=== PATIENT | male | born 1970 | race Caucasian/White ===

== ENCOUNTER 2016-06-15 09:10 | Emergency (ER) | payer OTHER ==
[~2016-06-15] VITALS: Ht 177.8 cm; Wt 106.6 kg
[~2016-06-15 09:10] MED LIST: BENTYL20 M1 PO; CIPRO500 M1 PO; FLAGYL500 MG PO; IBUPROFEN600 M1 PO; PERCOCET 5-3251 EACH PO; POLYTRIM O200 GTT/BO OP; PREVACID 30MG30 MG PO
--- NOTE | 2016-06-15 10:55 | ED THROAT/DENTAL COMPLAINT ---
History of Present Illness General Chief Complaint: Sore Throat, Dental Pain Stated Complaint: DENTAL PAIN Source: patient, old records Exam Limitations: no limitations Vital Signs & Intake/Output Vital Signs & Intake/Output Vital Signs Date Time Temp Pulse Resp B/P Pulse O2 O2 Flow FiO2 Ox Delivery Rate 06/15 1110 97.4 86 18 146/79 99 Room Air 06/15 1110 99 06/15 0913 98.0 94 18 139/98 98 Room Air Allergies Coded Allergies: NO KNOWN ALLERGIES (12/28/10) Reconcile Medications Amoxicillin/Potassium Clav (Augmentin 875-125 Tablet) 875 MG-125 MG TABLET 1 TAB PO BID dental Ciprofloxacin HCl (Cipro) 500 MG TABLET 1 TAB PO BID colitis Dicyclomine HCl (Bentyl) 20 MG TABLET 1 TAB PO TID spasms Metronidazole (Flagyl) 500 MG TABLET 1 TAB PO TID COLITIS Oxycodone HCl/Acetaminophen (Percocet 5-325 MG Tablet) 5 MG-325 MG TABLET 1 TAB PO BID PRN pain Triage Note: PT COMPLAINS OF L SIDE UPPER DENTAL PAIN 12/21 THAT STARTED LAST PM, TOOK MOTRIN 2 HOURS AGO FOR THE PAIN Triage Nurses Notes Reviewed? yes Onset: Abrupt Duration: day(s): (2), constant Timing: recent history Injury Environment: home Severity: moderate, severe Severity Numbers: 10 Modifying Factors: Worsens With: eating. Associated Symptoms: denies HPI: 45-year-old male presents emergency room complaining of left upper dental pain associated with left-sided facial swelling since last night 10 out of 10 pain worse with eating palpation. He denies any known injury or trauma, and has not follow-up with a dentist. He denies any difficulty swallowing fevers or chills. He took ibuprofen 2 hours prior to arrival without improvement. There are no other modifying factors or associated symptoms otherwise. (SEMAJ PRATHER,CARLOS) Past History Travel History Traveled to [place] past 21 day No Medical History Any Pertinent Medical History? see below for history Neurological: NONE EENT: NONE Cardiovascular: NONE Respiratory: NONE Gastrointestinal: ACID REFLUX Hepatic: NONE Renal: NONE Musculoskeletal: R KNEE TORN CARTILIDGE Psychiatric: substance abuse, HX OF SUBSTANCE ABUSE Endocrine: NONE Blood Disorders: NONE Cancer(s): NONE REHAB AIDE/Reproductive: NONE Surgical History Surgical History: R KNEE TORN LIGAMENT Psychosocial History What is your primary language Luxembourgish Tobacco Use: Never used ETOH Use: denies use Illicit Drug Use: denies illicit drug use Family History Hx Contributory? No (CARLOS WILKINSON) Review of Systems Review of Systems Constitutional: Reports: see HPI. All Other Systems: Reviewed and Negative Comments Review of systems: See HPI, All other systems negative. Constitutional, no chills no fever, no malaise HEENT: no sore throat no congestion, no ear pain Cardiovascular: No chest pain , no palpitation Skin,no rashes, no change in skin Respiratory: No dyspnea no cough no sputum GI: No nausea no vomiting, Muscle skeletal: No joint pain,no back pain, no neck pain, Neurologic: no headache Psych: No stress Heme/endocrine: No bruising no bleeding Immunology: No lymphadenopathy (CARLOS WILKINSON) Physical Exam Physical Exam General Appearance: well developed/nourished, alert, awake Mouth/Throat: pharynx normal Comments: Well-developed well-nourished patient in no apparent distress. Head/Face: Atraumatic, no maxillary/frontal sinus tenderness, mild left facial swelling Eyes: PERRL, EOMI, no conjunctival injection Ear:External auditory canals clear Nose: atraumatic.Normal inspection Throat: Moist mucous membranes.Pharynx normal. No pharyngeal erythema/exudate seen. No stridor/drooling or assymetry. No swelling or edema. Poor dentition no gingival abscess Neck: Supple, no lymphadenopathy, FROM Back: FROM, Nontender Cardiovascular: Regular rate and rhythms no murmurs rubs or gallops, Respiratory: No respiratory distress. Patient speaking in full complete sentences. Breath sounds clear to auscultation bilaterally: NO W/R/R Extremities: full range of motion Neuro: Alert and oriented x3 Skin: Warm & dry;No appreciable rash on exposed skin Psych: Mood affect normal, normal memory normal judgment. Core Measures ACS in differential dx? No Severe Sepsis Present: No Septic Shock Present: No (CARLOS WILKINSON) Progress Differential Diagnosis: carious tooth, epiglottitis, odontogenic abscess, devon- tonsillar abscess, stomatitis/gingivitis, tooth fracture Plan of Care: Advise close follow-up with dentist Kristal Velásquez provided he feels comfortable plan cleared for discharge I had an extensive conversation regarding need for close follow up with their primary care physician this week as well as return precautions. I answered all of their questions, they feel comfortable with the plan and follow-up care. I discussed the medications that they will receive with the patient. I gave them signs and symptoms that could indicate an adverse reaction. I have advised them to limit their activities until they can see how they respond to the medication. (CARLOS WILKINSON) Departure Departure Time of Disposition: 1057 Disposition: HOME OR SELF CARE Condition: Stable Clinical Impression Primary Impression: Dental abscess Referrals: JOSE TORRES APRN (PCP/Family) Additional Instructions: Follow-up with your dentist as discussed. Augmentin as directed. Percocet for breakthrough pain use caution as this is a narcotic addictive no driving or drinking alcohol while taking. These prescriptions were sent to the [facility]. return with any concerns Departure Forms: Customer Survey General Discharge Information Prescriptions: Current Visit Scripts Amoxicillin/Potassium Clav (Augmentin 875-125 Tablet) 1 TAB PO BID #20 TAB Oxycodone HCl/Acetaminophen (Percocet 5-325 MG Tablet) 1 TAB PO BID PRN pain #10 TAB (CARLOS WILKINSON) PA/BRICK PITCHER Co-Sign Statement Statement: ED Attending supervision documentation- [] I saw and evaluated the patient. I have also reviewed all the pertinent lab results and diagnostic results. I agree with the findings and the plan of care as documented in the PA's/BRICK PITCHER's documentation. x I have reviewed the ED Record and agree with the PA's/BRICK PITCHER's documentation. [] Additions or exceptions (if any) to the PAs/BRICK PITCHER's note and plan are summarized below: [] (ESTEPHANIE COMBS,AI)
[2016-06-15] MEDS ORDERED: PERCOCET 5-3251 EACH PO (11:00)
[2016-06-15] MEDS ORDERED: AUGMENTIN 875-1 EACH PO (11:00)
[2016-06-15 11:10] VITALS: BP 146/79
== END 2016-06-15 11:15 ==
LOC: ERH 09:10
DX: K04.7 Periapical abscess without sinus (principal)

== ENCOUNTER 2016-06-16 05:38 | Emergency (ER) | payer OTHER ==
[~2016-06-16] VITALS: Ht 177.8 cm; Wt 106.6 kg
[~2016-06-16 05:38] MED LIST changes: +AUGMENTIN 875-1 EACH PO
--- NOTE | 2016-06-16 05:56 | ED THROAT/DENTAL COMPLAINT ---
History of Present Illness General Chief Complaint: Sore Throat, Dental Pain Stated Complaint: SEEN YEST DENTAL PAIN TODAY SEVERE FACIAL SWELLING Source: patient, old records Exam Limitations: no limitations Vital Signs & Intake/Output Vital Signs & Intake/Output Vital Signs Date Time Temp Pulse Resp B/P Pulse O2 O2 Flow FiO2 Ox Delivery Rate 06/16 0546 97.6 96 18 141/85 97 Room Air Allergies Coded Allergies: NO KNOWN ALLERGIES (12/28/10) Reconcile Medications Amoxicillin/Potassium Clav (Augmentin 875-125 Tablet) 875 MG-125 MG TABLET 1 TAB PO BID dental Ciprofloxacin HCl (Cipro) 500 MG TABLET 1 TAB PO BID colitis Dicyclomine HCl (Bentyl) 20 MG TABLET 1 TAB PO TID spasms Metronidazole (Flagyl) 500 MG TABLET 1 TAB PO TID COLITIS Oxycodone HCl/Acetaminophen (Percocet 5-325 MG Tablet) 5 MG-325 MG TABLET 1 TAB PO BID PRN pain Triage Note: PT TO ED C/O WORSENING PAIN AND SWELLING TO INFECTED TOOTH ON LEFT UPPER. PT SEEN FOR SWELLING AND TOOTH INFECTION YESTERDAY. STARTED ABX YESTERDAY AND SWELLING HAS GOTTEN WORSE. PATIENT DENIES ANY SWELLING TO TONGUE OR THROAT Triage Nurses Notes Reviewed? yes Onset: Abrupt Duration: day(s): (few) Timing: recent history Injury Environment: home Severity: mild, moderate No Modifying Factors: none Associated Symptoms: facial swelling HPI: 46 male presents with worsening left upper tooth and infection. He was seen yesterday and put on antibiotics. C/O facial swelling. No fever or chills. Reports worsening pain. Past History Travel History Traveled to [place] past 21 day No Medical History Any Pertinent Medical History? see below for history Neurological: NONE EENT: NONE Cardiovascular: NONE Respiratory: NONE Gastrointestinal: ACID REFLUX Hepatic: NONE Renal: NONE Musculoskeletal: R KNEE TORN [place]ARTILIDGE Psychiatric: substance abuse, HX OF SUBSTANCE ABUSE Endocrine: NONE Blood Disorders: NONE Cancer(s): NONE DENIAL RESOLUTION SPECIALIST/Reproductive: NONE Surgical History Surgical History: R KNEE TORN LIGAMENT Psychosocial History What is your primary language Surinamese Tobacco Use: Quit >30 days ago Family History Hx Contributory? No Review of Systems Review of Systems Constitutional: Denies: chills, fever. EENTM: Reports: mouth pain, tooth pain. Denies: throat pain, throat swelling. Respiratory: Denies: short of breath. Cardiovascular: Denies: chest pain. GI: Denies: abdominal pain. Genitourinary: Reports: no symptoms. Musculoskeletal: Reports: no symptoms. Skin: Reports: no symptoms. Neurological/Psychological: Reports: no symptoms. Hematologic/Endocrine: Denies: bruising, bleeding, polyuria, polydipsia. Immunologic/Allergic: Reports: no symptoms. All Other Systems: Reviewed and Negative Physical Exam Physical Exam General Appearance: well developed/nourished, alert, awake Head: atraumatic, LEFT FACIAL SWELLING Eyes: Bilateral: normal appearance, PERRL, EOMI. Ears: Bilateral: canal normal, Tympanic normal. Nose: normal inspection Mouth/Throat: LEFT UPPER TOOTH TTP, GUM SWELLING Neck: normal inspection, supple, full range of motion Neurologic/Psych: awake, alert, oriented x 3 Skin: intact, normal color, warm/dry Core Measures ACS in differential dx? No Severe Sepsis Present: No Septic Shock Present: No Progress Differential Diagnosis: odontogenic abscess, devon-tonsillar abscess, INFECTED TOOTH, ABSCESS, OSTEOMYELITIS Plan of Care: Orders Procedure Date/time Status CT MAXILLOFACIAL W CONT 06/16 554 Active Current Medications Sig/Nacho Start time Last Medication Dose Stop Time Status Admin Morphine Sulfate 4 MG ONCE ONE 06/16 644 UNVr (Morphine) 06/16 645 Diagnostic Imaging: Viewed by Me: CT Scan. Discussed w/RAD: CT Scan. Radiology Impression: PATIENT: KAREN MELARA PRESENT AGE: 45 PATIENT ACCOUNT NO: [id number] : 69 LOCATION: [facility] ORDERING PHYSICIAN: MARGIE GAINES MD SERVICE DATE: 06/16/16 EXAM TYPE: CAT - CT MAXILLOFACIAL W CONT EXAMINATION: CT MAXILLOFACIAL WITH CONTRAST CLINICAL INFORMATION: Left facial pain and swelling. COMPARISON: None TECHNIQUE: Multidetector helical imaging was performed in the axial plane with generation of coronal and sagittal reformatted images. The examination was performed after the administration of 93 mL of Optiray 320 intravenous contrast DLP: 811.94 mGy- cm FINDINGS: There is edema and swelling over the left side of the face around the mandible and over the maxilla involve the inferior preseptal soft tissues of left orbit. There is a small amount mucosal thickening in the left maxillary sinus but no air-fluid level. There is streak artifact from the teeth from the dental fillings. There is a dental caries of the posterior most left molar. A dental etiology therefore is suspected for the soft tissue swelling. An abscess though is not seen. There is additional sinus mucosal thickening in the frontal sinuses inferiorly bilaterally and scattered mucosal thickening in the ethmoid sinuses bilaterally. Small rim of mucosal thickening in the right sphenoid sinus. The ostia to the maxillary sinuses is open on the right and slightly narrowed on the left. There is normal variant of hola bullosa of the middle nasal turbinates bilaterally. The nasal air passages are open. The partially visualized intracranial structures are normal. IMPRESSION: Diffuse soft tissue swelling of left side of face. There is a small amount mucosal thickening left maxillary sinus fever a dental etiology for the swelling. No abscess however evident. DICTATED BY: FARHAN JUDD MD DATE/TIME DICTATED:06/16/16641 TOOLING SPECIALIST:SPIKE DATE/TIME TRANSCRIBED:06/16/16641 CONFIDENTIAL, DO NOT COPY WITHOUT APPROPRIATE AUTHORIZATION. <Electronically signed in Other Vendor System> SIGNED BY: FARHAN JUDD MD 06/16/16 0652 Departure Departure Time of Disposition: 654 Disposition: HOME OR SELF CARE Condition: Stable Clinical Impression Primary Impression: Dental infection Referrals: JOSE TORRES APRN (PCP/Family) Additional Instructions: Please continue your antibiotics and pain medications. Call your dentist today for an appointment. CAT scan does not reveal any evidence of an abscess. Please return to the ER for any changing or worsening symptoms. Departure Forms: Customer Survey General Discharge Information
--- NOTE | 2016-06-16 06:52 | CT SCAN REPORT ---
EXAMINATION: CT MAXILLOFACIAL WITH CONTRAST CLINICAL INFORMATION: Left facial pain and swelling. COMPARISON: None TECHNIQUE: Multidetector helical imaging was performed in the axial plane with generation of coronal and sagittal reformatted images. The examination was performed after the administration of 93 mL of Optiray 320 intravenous contrast DLP: 811.94 mGy-cm FINDINGS: There is edema and swelling over the left side of the face around the mandible and over the maxilla involve the inferior preseptal soft tissues of left orbit. There is a small amount mucosal thickening in the left maxillary sinus but no air-fluid level. There is streak artifact from the teeth from the dental fillings. There is a dental caries of the posterior most left molar. A dental etiology therefore is suspected for the soft tissue swelling. An abscess though is not seen. There is additional sinus mucosal thickening in the frontal sinuses inferiorly bilaterally and scattered mucosal thickening in the ethmoid sinuses bilaterally. Small rim of mucosal thickening in the right sphenoid sinus. The ostia to the maxillary sinuses is open on the right and slightly narrowed on the left. There is normal variant of hola bullosa of the middle nasal turbinates bilaterally. The nasal air passages are open. The partially visualized intracranial structures are normal. IMPRESSION: Diffuse soft tissue swelling of left side of face. There is a small amount mucosal thickening left maxillary sinus fever a dental etiology for the swelling. No abscess however evident.
[2016-06-16 07:45] VITALS: BP 122/69
== END 2016-06-16 07:46 ==
LOC: ERH 05:38
DX: K04.7 Periapical abscess without sinus (principal)
CPT/HCPCS: 96374; 96375; J1885